=== PATIENT | female | born 1965 | race Caucasian/White ===

== ENCOUNTER 2016-07-26 15:28 | Inpatient (IN) | payer MEDICAID ==
[~2016-07-26] VITALS: Ht 165.1 cm; Wt 72.1 kg
[2016-07-26 18:31] LABS: microscopic required? YES; urine erythrocyte 3+ (NEGATIVE)
[2016-07-26 18:41] LABS: BASOPHIL % 0.4 % (0-2); PLATELET COUNT 261 x10^3mcL (130-400); RED CELL DISTRIBUTION WIDTH 12.5 % (11.5-14.5)
[2016-07-26 18:45] LABS: CALCIUM 8.6 mg/dL (8.5-10.1); CARBON DIOXIDE 29.8 mmol/L (21-32); CHLORIDE SERUM 106 mmol/L (98-107); CREATININE SERUM 0.5 mg/dL (0.6-1.0); GFR1 > 60 mL/min; GLUCOSE SERUM 117 mg/dL (74-106); POTASSIUM SERUM 3.2 mmol/L (3.5-5.1); SODIUM SERUM 141 mmol/L (136-145)
[2016-07-26 18:50] LABS: ALBUMIN 3.6 g/dL (3.4-5.0); ALKALINE PHOSPHATASE 69 U/L (46-116); ALT/SGPT 69 U/L (14-59); AMYLASE 68 U/L (25-115); AST/SGOT 37 U/L (15-37); BILIRUBIN TOTAL 0.38 mg/dL (0.20-1.00); LIPASE 186 IU/L (73-393); TOTAL PROTEIN, SERUM 7.3 g/dL (6.4-8.2)
[2016-07-26 19:55] LABS: FREE T4 0.77 ng/dL (0.76-1.46); FREE THYROXINE INDEX 1.9 ug/dL (1.4-4.5); T4(THYROXINE) 6.4 ug/dL (4.7-13.3)
[2016-07-26 20:01] LABS: AMPHETAMINE QUAL UR NONE DETECTED (NEG <=1000)
[2016-07-26 20:02] LABS: T3 TOTAL 1.58 ng/mL
[2016-07-26 20:21] LABS: PHOSPHOROUS 3.7 mg/dL (2.5-4.9)
[2016-07-26 20:27] LABS: CHOLESTEROL/HDL RATIO 6.3
[2016-07-26 20:57] VITALS: BP 153/59
[2016-07-26 21:49] VITALS: BP 153/59
[2016-07-27 06:01] VITALS: BP 109/53
[2016-07-27 06:47] LABS: BASOPHIL % 0.5 % (0-2); PLATELET COUNT 225 x10^3mcL (130-400); RED CELL DISTRIBUTION WIDTH 12.8 % (11.5-14.5)
[2016-07-27 06:59] LABS: CARBON DIOXIDE 25.3 mmol/L (21-32); CHLORIDE SERUM 109 mmol/L (98-107); CREATININE SERUM 0.6 mg/dL (0.6-1.0); GFR1 > 60 mL/min; GLUCOSE SERUM 114 mg/dL (74-106); MAGNESIUM 1.9 mg/dL (1.8-2.4); PHOSPHOROUS 3.4 mg/dL (2.5-4.9); POTASSIUM SERUM 4.2 mmol/L (3.5-5.1); SODIUM SERUM 141 mmol/L (136-145)
[2016-07-27 09:21] VITALS: BP 130/56
[2016-07-27 12:34] VITALS: BP 120/65
[2016-07-27 16:53] VITALS: BP 124/63
[2016-07-27 21:56] VITALS: BP 125/57
[2016-07-28 06:17] VITALS: BP 124/61
[2016-07-28 06:48] LABS: ALBUMIN 3.4 g/dL (3.4-5.0); CALCIUM 8.5 mg/dL (8.5-10.1); CARBON DIOXIDE 26.1 mmol/L (21-32); CHLORIDE SERUM 107 mmol/L (98-107); CREATININE SERUM 0.5 mg/dL (0.6-1.0); GFR1 > 60 mL/min; GLUCOSE SERUM 112 mg/dL (74-106); POTASSIUM SERUM 4.6 mmol/L (3.5-5.1); SODIUM SERUM 140 mmol/L (136-145)
[2016-07-28 06:54] LABS: BASOPHIL % 0.5 % (0-2); RED CELL DISTRIBUTION WIDTH 12.8 % (11.5-14.5)
[2016-07-28 08:07] LABS: PLATELET COUNT 230 x10^3mcL (130-400)
[2016-07-28 10:40] VITALS: BP 121/65
[2016-07-28] MEDS ORDERED: NAP250 PO ×2 (12:56→13:04)
[2016-07-28 13:16] VITALS: BP 121/65
[2016-07-28 14:23] VITALS: BP 118/65
== END 2016-07-28 15:25 | disposition home or self-care (01) | DRG 532 ==
LOC: ED 15:28 → MU 19:12
PROVIDERS: Emergency Medicine; Family Medicine; ADMIT Family Medicine
DX: D25.1 Intramural leiomyoma of uterus (principal); N17.0 Acute kidney failure with tubular necrosis; M72.2 Plantar fascial fibromatosis; S56.811A Strain of other muscles, fascia and tendons at forearm level, right arm, initial encounter; E87.6 Hypokalemia; R31.9 Hematuria, unspecified; E83.51 Hypocalcemia; R73.03 Prediabetes; E78.5 Hyperlipidemia, unspecified; X58.XXXA Exposure to other specified factors, initial encounter; Y93.89 Activity, other specified; Y92.89 Other specified places as the place of occurrence of the external cause; Z68.26 Body mass index [BMI] 26.0-26.9, adult
CPT/HCPCS: 80307; 83880; 84439; G0480; J2270; J7030; Q0092